=== PATIENT | female | born 1950 | race Caucasian/White ===

== ENCOUNTER 2017-12-18 08:56 | Emergency (ER) | payer MEDICARE, BC ==
[~2017-12-18] VITALS: Ht 154.9 cm; Wt 58.6 kg
[2017-12-18 09:04] VITALS: TEMP 97
[2017-12-18] MEDS ORDERED: NEURONTIN300 MG/CAP PO ×2 (09:23)
[2017-12-18] MEDS ORDERED: FLEXERIL5 MG PO (09:24)
[2017-12-18] MEDS ORDERED: DECADRON 4MG TAB4 MG PO (09:24)
[2017-12-18 09:34] LABS: BASO % 0.1 % (0.0-2.0); EOS # 0.1 (0.0-0.7); EOS % 0.4 % (0-4.0); GRAN # 9.6 (1.4-6.5); GRAN % 73.7 % (42.2-75.2); HEMATOCRIT 39.4 % (37.0-47.0); HEMOGLOBIN 13.3 g/dl (12.5-16.0); LYMPH # 2.3 (1.2-3.4); LYMPH % 17.7 % (20.0-51.0); MEAN CELL VOLUME 86 fl (80.0-100.0); MEAN CORPUSCULAR HEMOGLOBIN 29 pg (27.0-31.0); MEAN CORPUSCULAR HGB CONC 34 g/dl (33.0-37.0); MEAN PLATELET VOLUME 8.9 fl (7.4-10.4); MONO % 7.4 % (1.7-9.3); PLATELET COUNT 386 K/mm3 (130-400); RED BLOOD COUNT 4.56 M/mm3 (4.10-5.30); REDCELL DISTRIBUTION WIDTH-CV 14.5 % (11.5-14.5)
[2017-12-18 09:51] LABS: COLLECTION METHOD CLEAN CATCH
[2017-12-18 09:51] LABS: ALANINE AMINOTRANSFERASE 50 U/L (9-52); ALBUMIN 4.3 gm/dL (3.5-5.0); ALKALINE PHOSPHATASE 103 U/L (50-136); ANION GAP 10 mmol/L (7-16); AST,SGOT 46 U/L (15-37); BILIRUBIN,TOTAL 0.4 mg/dL (0.0-1.0); BLOOD UREA NITROGEN 15 mg/dL (7-17); CALCIUM 9.6 mg/dL (8.4-10.2); CARBON DIOXIDE 29 mmol/L (22-30); CHLORIDE 95 mmol/L (98-107); CREATININE, serum 0.53 mg/dL (0.52-1.25); GLUCOSE 84 mg/dL (74-106); POTASSIUM 3.6 mmol/L (3.4-5.0); SODIUM 134 mmol/L (137-145); TOTAL PROTEIN 7.9 gm/dL (6.4-8.2)
[2017-12-18 09:54] LABS: C-REACTIVE PROTEIN < 0.5 mg/dL (0.0-0.9)
[2017-12-18] MEDS ORDERED: PROAIR HFA0.09 MG/AC IH (09:56)
[2017-12-18] MEDS ORDERED: EFFEXOR XR75 MG/CAP PO (09:57)
[2017-12-18] MEDS ORDERED: NASONEX SPRAY17 GM NS (09:57)
[2017-12-18] MEDS ORDERED: MAVIK2 MG PO ×2 (09:59)
[2017-12-18 10:00] LABS: PH 8 (5-8); SQUAMOUS EPITHELIAL 0-2 /hpf; URINE APPEARANCE Clear; URINE BACTERIA None Seen /hpf; URINE BILIRUBIN Negative (NEGATIVE); URINE BLOOD 2+ (NEGATIVE); URINE COLOR Straw; URINE GLUCOSE Negative (NEGATIVE); URINE KETONE Negative (NEGATIVE); URINE LEUKOCYTE ESTERASE Negative (NEGATIVE); URINE NITRATE Negative (NEGATIVE); URINE PROTEIN(semi-quant) Negative (NEGATIVE); URINE RBC 0-2 /hpf; URINE UROBILINOGEN Negative (NEGATIVE)
[2017-12-18] MEDS ORDERED: VERELAN240 MG PO (10:00)
[2017-12-18] MEDS ORDERED: LIPITOR20 MG PO (10:00)
[2017-12-18] MEDS ORDERED: MICROZIDE12.5 MG PO (10:00)
[2017-12-18] MEDS ORDERED: ALLEGRA 180MG180 MG PO (10:34)
[2017-12-18] MEDS ORDERED: ZYRTEC 10MG10 MG PO (10:34)
[2017-12-18] MEDS ORDERED: RETIN A MICRO TP (10:35)
[2017-12-18] MEDS ORDERED: MULTIPLE VITAMI1 TA1 PO (10:38)
[2017-12-18] MEDS ORDERED: QVAR0.04 MG/AC IH (10:39)
[2017-12-18 11:39] VITALS: BP 166/104; PULSE 80
== END 2017-12-18 11:50 | disposition short-term general hospital (02) ==
LOC: COL.ER 08:56
PROVIDERS: Family Medicine
DX: I67.4 Hypertensive encephalopathy (principal); Z79.51 Long term (current) use of inhaled steroids
CPT/HCPCS: J7030